=== PATIENT | male | born 1960 | race Caucasian/White ===

== ENCOUNTER 2017-05-05 11:27 | Emergency (ER) | payer MEDICARE, OTHER ==
[~2017-05-05] VITALS: Ht 193 cm; Wt 126.4 kg
[~2017-05-05 11:27] MED LIST: BETAMETHASONE D0.053 TP; FLONASE ALLERG9.9 ML; IBUPROFEN800 MG PO; LISINOPRIL20 MG PO; LOTRISONE 0.05%1 CRE TP; XANAX 0.5MG0.5 MG PO
[2017-05-05] MEDS ORDERED: ASPIRIN E.C. 8181 MG PO (11:38)
[2017-05-05] MEDS ORDERED: FLAGYL500 M1 PO (14:08)
[2017-05-05] MEDS ORDERED: CIPRO500 M1 PO (14:08)
[2017-05-05 16:14] VITALS: BP 136/87
== END 2017-05-05 16:09 | disposition home or self-care (01) ==
LOC: ED 11:27
DX: K57.32 Diverticulitis of large intestine without perforation or abscess without bleeding (principal); N43.3 Hydrocele, unspecified; I10 Essential (primary) hypertension; F41.9 Anxiety disorder, unspecified; Z86.73 Personal history of transient ischemic attack (TIA), and cerebral infarction without residual deficits
CPT/HCPCS: J0744; J7030; Q9967

== ENCOUNTER → 2017-07-04 | Outpatient (CLI) | payer MEDICARE, OTHER ==
[~2017-07-04] MED LIST changes: +ASPIRIN E.C. 8181 MG PO; +CIPRO500 M1 PO; +FLAGYL500 M1 PO
== END ==
LOC: LAB 13:44
DX: E66.3 Overweight (principal)

== ENCOUNTER → 2017-08-17 | Outpatient (CLI) | payer MEDICARE ==
[2017-08-17 13:05] LABS: 1 HOUR POST GLUCOLA-GLUCOSE 156 mg/dL (65-105); 2 HOUR POST GLUCOLA-GLUCOSE 86 mg/dL (65-105); FASTING GLUCOSE 94 mg/dL (65-105)
[2017-08-18 00:23] LABS: RPR (VDRL) Non-reactive (())
== END ==
LOC: LAB 09:19
PROVIDERS: Psychiatry & Neurology Neurology
DX: G62.9 Polyneuropathy, unspecified (principal); E55.9 Vitamin D deficiency, unspecified

== ENCOUNTER → 2018-04-23 | Outpatient (CLI) | payer MEDICARE | LOC: RAD 14:28 | DX: R07.9 Chest pain, unspecified (principal) ==